=== PATIENT | male | born 1965 | race Two or more races ===

== ENCOUNTER 2023-08-01 10:38 | Emergency (ER) | payer OTHER ==
[~2023-08-01] VITALS: Ht 172.7 cm; Wt 127.0 kg
[2023-08-01 11:45] VITALS: BP 152/73; PULSE 82; RESP 16; TEMP 98.6; O2SAT 96
[2023-08-01] MEDS ORDERED: CIPRSUS OT ×2 (12:26→13:21)
== END 2023-08-01 12:28 | disposition home or self-care (01) ==
LOC: ER 10:38
DX: H60.92 Unspecified otitis externa, left ear (principal)